=== PATIENT | female | born 1995 | race Caucasian/White ===

== ENCOUNTER 2021-05-22 22:13 | Outpatient (CLI) | payer OTHER | END 2021-05-23 00:36 | disposition home or self-care (01) | LOC: GENOP 22:13 | DX: O36.8130 Decreased fetal movements, third trimester, not applicable or unspecified (principal); O47.1 False labor at or after 37 completed weeks of gestation; Z3A.35 35 weeks gestation of pregnancy | CPT/HCPCS: 81001; 96360 ==

== ENCOUNTER 2021-06-16 04:13 | Inpatient (IN) | payer OTHER ==
[~2021-06-16] VITALS: Ht 157.5 cm; Wt 86.2 kg
[2021-06-16] MEDS ORDERED: PRENATAL VITAM1 EAC3 PO (05:35)
[2021-06-16 07:00] LABS: HEMOGLOBIN 11.6 gm/dl (12.3-15.3); RED BLOOD COUNT 3.8 M/UL (4.00-5.10); WHITE BLOOD COUNT 10.5 K/UL (4.5-11.0)
[2021-06-16] MEDS ORDERED: DOCUSATE SODIU100 MG PO (18:38)
[2021-06-16] MEDS ORDERED: IBUPROFEN600 MG PO (18:38)
[2021-06-16] MEDS ORDERED: HYDROCODON-ACE1 EAC4 PO (18:38)
[2021-06-17 06:29] LABS: HEMOGLOBIN 9.5 gm/dl (12.3-15.3)
== END 2021-06-18 17:57 | disposition home or self-care (01) | DRG 807 ==
LOC: GENOP 04:13 → OB 05:00
PROVIDERS: Obstetrics & Gynecology; ADMIT Obstetrics & Gynecology
PROC: 10E0XZZ Delivery of Products of Conception, External Approach (ICD-10-PCS; principal; 2021-06-16)
PROC: 0HQ9XZZ Repair Perineum Skin, External Approach (ICD-10-PCS; 2021-06-16)
PROC: 4A1HXCZ Monitoring of Products of Conception, Cardiac Rate, External Approach (ICD-10-PCS; 2021-06-16)
PROC: 3E02340 Introduction of Influenza Vaccine into Muscle, Percutaneous Approach (ICD-10-PCS; 2021-06-16)
DX: O42.92 Full-term premature rupture of membranes, unspecified as to length of time between rupture and onset of labor (principal); Z37.0 Single live birth; Z20.822 Contact with and (suspected) exposure to COVID-19; Z3A.39 39 weeks gestation of pregnancy; O70.0 First degree perineal laceration during delivery; O69.81X0 Labor and delivery complicated by cord around neck, without compression, not applicable or unspecified; Z23 Encounter for immunization
CPT/HCPCS: 51702; 82800; 83518; 85014; 85018; 85025; 90471; 90686; 90715; G0008; J0595; J2405; J2590; J7120; U0002